=== PATIENT | female | born 1970 | race Caucasian/White ===

== ENCOUNTER 2017-06-28 22:00 | Emergency (ER) | payer OTHER ==
[~2017-06-28] VITALS: Ht 154.9 cm; Wt 78.0 kg
[~2017-06-28 22:00] MED LIST: MEDROL8 MG PO; PROVENTIL HFA6.7 GM IH; SYNTHROID50 MCG PO; ZYNCOF 20-400120 ML PO
[2017-06-29] MEDS ORDERED: MEDROLPACK PO (04:50)
[2017-06-29] MEDS ORDERED: DICLOFENAC SODI50 MG PO (04:50)
== END 2017-06-29 05:07 | disposition home or self-care (01) ==
LOC: ER 22:00
DX: N64.4 Mastodynia (principal); M94.0 Chondrocostal junction syndrome [Tietze]

== ENCOUNTER 2018-01-13 21:32 | Emergency (ER) | payer OTHER ==
[~2018-01-13] VITALS: Ht 154.9 cm; Wt 81.6 kg
[~2018-01-13 21:32] MED LIST changes: +DICLOFENAC SODI50 MG PO; +MEDROLPACK PO
[2018-01-14] MEDS ORDERED: VISTARIL50 MG PO (03:10)
== END 2018-01-14 03:15 | disposition home or self-care (01) ==
LOC: ER 21:32 → CPU-OBS 21:35 → ER 21:35
DX: R07.89 Other chest pain (principal); I10 Essential (primary) hypertension
CPT/HCPCS: G0378; G0379; 93005